=== PATIENT | female | born 1950 | race African-American/Black ===

== ENCOUNTER 2016-06-28 09:52 | Emergency (ER) | payer OTHER ==
[~2016-06-28 09:52] MED LIST: ARTIFICIAL15 ML OPTH OD; ASPIRIN PO; AUGMENTIN PO; BENADRYL PO; DARVOCET-N 1001 TAB PO; ELIMITE60 GM TOP; FLEXERIL PO; LIPITOR PO; LORTAB 10/500 T1 TAB PO; LORTAB 101 TAB 10/5; MEDROL4 MG/DOSE- PO; PREDNISONE PO; SKELAXIN PO; SYNTHROID PO; TUSSIONEX PENN473 ML PO; VICODIN 5/500 T1 TAB PO; VICODIN PO; ZANTAC PO
[2016-11-24] MEDS ORDERED: OMEPRAZOLE40 M1 (15:46)
== END 2016-06-28 09:55 | disposition home or self-care (01) ==
LOC: CFTX 09:52
DX: R05 Cough (principal); J02.9 Acute pharyngitis, unspecified; Z98.890 Other specified postprocedural states; Z88.6 Allergy status to analgesic agent; Z88.5 Allergy status to narcotic agent; Z88.8 Allergy status to other drugs, medicaments and biological substances
CPT/HCPCS: 99282

== ENCOUNTER 2016-07-12 02:19 | Observation (INO) | payer OTHER ==
--- NOTE | ~2016-07-12 | CO ---
Unit #: [id number] #: [id number] Patient: BERLIN FARRIS [id number] [address] [place], [place] [address] [id number] I MR#: [id number] NAME: BERLIN FARRIS ROOM: 565 Age: 66 Sex: F Admission Date: 07/12/2016 : 1950 Attending Physician: Nirmal Browning M.D. Primary Care Physician: Steve Johns M.D. Consultation Date: 07/13/2016 CONSULTATION REPORT PRIMARY CARE PHYSICIAN Steve Johns M.D. REASON FOR CONSULTATION Elevated hepatic transaminases. HISTORY OF PRESENT ILLNESS Ms. Farris is a 66-year-old female, who has been admitted with left-sided chest pain, pain in the left arm, and left torso. The patient has been evaluated by Cardiology and has been cleared from cardiac standpoint to go home. She also mentions significant dyspeptic symptoms and occasional black tarry stools. She also mentions history of nausea and intermittent vomiting. Upon her evaluation, she has been found to have elevated AST and ALT with normal alkaline phosphatase and bilirubin. PAST MEDICAL HISTORY Significant for history of TIAs; hypothyroidism; as well as uterine cancer, status post radiation treatment. PAST SURGICAL HISTORY Included section, internal fixation of right metatarsal. MEDICATIONS Prior to admission include ibuprofen and Flexeril. SOCIAL HISTORY Lives with her son and daughter. Recently . Very rarely drinks alcohol. Does not smoke. She has never used any recreational drugs. FAMILY HISTORY Significant for coronary artery disease in multiple family members in 30s and 40s. REVIEW OF SYSTEMS Detailed review of organ systems does not reveal any recent weight loss. No history of any fever, chills, or rigors. No history of any headache, seizures, or syncope. No history of cough, expectoration, or hemoptysis. No history of dysuria, hematuria, or pyuria. No history of focal seizures or extremity weakness. Rest of the review of organ systems is unremarkable. PHYSICAL EXAMINATION GENERAL: She is alert and oriented, and comfortable. VITAL SIGNS: Stable with a temperature of 98.2, pulse is 71 per minute Unit #: [id number] #: [id number] Patient: KALEIGH,BERLIN and regular, respirations is 20, and blood pressure is 122/73. She weighs 148 pounds. Baseline weight has been about 150 pounds in the past. HEENT: She has no pallor, icterus, lymphadenopathy, or peripheral edema. CARDIOVASCULAR: Normal heart sounds. No murmurs on auscultation. LUNGS: Reveal normal breath sounds. Good air entry. ABDOMEN: Soft and nontender. Liver and spleen are not palpable. Bowel sounds normal. DIAGNOSTIC STUDIES LABORATORY RESULTS: Shows a normal white count and hemoglobin. MCV of 100. Platelet count is 104. Serum chemistry shows normal BUN and creatinine, and electrolytes. Albumin is 3.0. AST and ALT are 144 and 164 respectively. Alkaline phosphatase is normal. Bilirubin is also normal. IMAGING STUDIES: An abdominal ultrasound done yesterday is normal. CLINICAL IMPRESSION The etiology of elevated transaminases could be chronic hepatitis C or recent viral illness or viral infection. The hepatitis serology is pending. The patient can be discharged home from GI standpoint and needs to follow up with me in the office in 6 to 8 weeks' time. The above plan was discussed with the patient and she was reassured. Thank you for asking me to see this pleasant woman. I appreciate the consult. Dictated by... Kari Louis/eda TD: 07/14/2016 01:25 JOB #: [id number] CC: . CONSULTATION REPORT Page 1 of 1 X Monty Abarca MD CONSULTATION REPORT
--- NOTE | ~2016-07-12 | US6 ---
[facility] A Service of [facility] RADIOLOGY TEXT RESULTS PATIENT: BERLIN FARRIS LOCATION: [facility] : [birth year] UNIT #: [id number] AGE: [address]: Nirmal Browning MD SEX: F ORDER DR: [id number] [id number] [place], [place] [address] [id number] I MR#: [id number] Acc #: [id number] NAME: BERLIN FARRIS : 1950 SEX: F STUDY DATE/TIME: 07/12/2016 12:29 UNIT: CEDOF ROOM: 32315 STUDY DESCRIPTION: US Abdominal Limited Attending Physician: Nirmal Browning M.D. Ordering Physician: Nirmal Browning M.D. Primary Care Physician: Setve Johns M.D. MEDICAL IMAGING REPORT This report is preliminary unless electronic signature is present EXAM Right upper quadrant abdominal ultrasound INDICATIONS Right upper quadrant abdominal pain for the past 6 months. PROCEDURE Lacey-scale and Doppler imaging right upper quadrant of the abdomen COMPARISON None FINDINGS Visualized portions of pancreas unremarkable. Common duct measures 6 mm. Unremarkable gallbladder. Right kidney measures 10.6 cm. No hydronephrosis. Liver measures 16.6 cm. Liver has slightly increased echotexture. IMPRESSION 1. Slightly increased liver echotexture could represent mild steatosis. 2. Otherwise negative right upper quadrant ultrasound. Dictated by... Alex Sandoval M.D. THIS IS AN ELECTRONICALLY VERIFIED REPORT Alex Sandoval M.D. at 07/13/2016 6:51 AM ALBIN/brendan TD: 07/12/2016 14:27 JOB #: [id number] MEDICAL IMAGING REPORT [facility] A Service [facility] RADIOLOGY TEXT RESULTS PATIENT: BERLIN FARRIS LOCATION: [facility] : [birth year] UNIT #: [id number] AGE: [address]: Nirmal Browning MD SEX: F ORDER DR: Page 1 of 1 COPY
--- NOTE | ~2016-07-12 | HP ---
Unit #: [id number] #: [id number] Patient: BERLIN FARRIS [id number] [address] [place], [place] [address] [id number] I MR#: [id number] NAME: BERLIN FARRIS ROOM: [facility] Age: 66 Sex: F Admission Date: 07/12/2016 : 1950 Attending Physician: Nirmal Browning M.D. Primary Care Physician: Steve Johns M.D. HISTORY AND PHYSICAL ADDENDUM TO JOB #[id number] The patient was evaluated for chest pain. She was ruled out for myocardial infarction with negative cardiac enzymes and troponin. She underwent exercise Cardiolite stress test where she exercised on a treadmill for 5 minutes and 58 seconds. She had no ischemic changes per EKG. There was no stress-induced ischemia noted on images with ejection fraction of 75%. She was noted to have elevated LFTs and was evaluated by Dr. Abarca. His assessment was that the patient has acute pancreatitis. She had multiple abdominal complaints and underwent CT of the abdomen and pelvis which shows stool burden but no acute findings. Dr. Abarca felt the patient could go home from his standpoint. She is to contact her primary care physician to get a referral for hospital GI follow up for Dr. Abarca in the next two to three weeks. She is to follow up with her primary care physician in two to three weeks. She will be discharged home on her current medications without changes. Dictated by Jose Thompson/barbraa TD: 07/13/2016 18:02 JOB #: [id number] HISTORY AND PHYSICAL Page 1 of 1 X Shayan Kam APRN HISTORY AND PHYSICAL
--- NOTE | ~2016-07-12 | TH ---
Unit #: [id number] #: [id number] Patient: BERLIN FARRIS [id number] [address] [address] [id number] I MR#: [id number] NAME: BERLIN FARRIS : 1950 SEX: F STUDY DATE/TIME: UNIT: [facility] ROOM: 565 STUDY DESCRIPTION: Nuclear Study Attending Physician: Nirmal Browning M.D. Primary Care Physician: Steve Johns M.D. CARDIOLOGY REPORT EXAM Exercise Cardiolite Stress Test - Nuclear Portion DESCRIPTION Using technetium 99m labeled Cardiolite, rest and stress SPECT images were obtained. Multiple SPECT images were obtained in various views including horizontal and vertical long axis and short axis views of the left ventricle. Images were obtained by gated SPECT method. The patient was administered 11.92 mCi of Cardiolite at rest. The patient was administered 36.0 mCi of Cardiolite at peak exercise. Total exercise time is 5 minutes 58 seconds. On the stress images, there normal perfusion noted. The rest images show normal perfusion. Comparing rest and stress images, there is no stress-induced ischemia noted. The left ventricular ejection fraction is calculated to be 75%. There is no focal wall motion abnormality seen. CONCLUSION 1. No stress-induced ischemia noted. 2. The left ventricular ejection fraction is calculated to be 75%. 3. There is no focal wall motion abnormality seen. 4. Normal nuclear portion of the stress test. 5. It must be noted that the patient had chest pain with exercise. No EKG changes noted. Clinical correlation is requested. Dictated by... Kari Yoon TD: 07/13/2016 07:12 JOB #: [id number] Unit #: [id number] #: [id number] Patient: BERLIN FARRIS CARDIOLOGY REPORT Page 1 of 1 X Mariel Day MD <ELECTRONICALLY SIGNED> 10/21/16 1429 CARDIOLOGY REPORT
--- NOTE | ~2016-07-12 | CR72 ---
[facility] A Service of [facility] RADIOLOGY TEXT RESULTS PATIENT: BERLIN FARRIS LOCATION: [facility] : [birth year] UNIT #: [id number] AGE: [address]: Nirmal Browning MD SEX: F ORDER DR: [id number] [facility] [address] [facility]. [place], [place] [address] [id number] I MR#: [id number] Acc #: [id number] NAME: BERLIN FARRIS : 1950 SEX: F STUDY DATE/TIME: 07/12/2016 02:18 UNIT: [facility] ROOM: 13572 STUDY DESCRIPTION: CR Chest Single View Portable Attending Physician: Nirmal Browning M.D. Ordering Physician: Saji Sheppard Aprn Primary Care Physician: Steve Johns M.D. MEDICAL IMAGING REPORT This report is preliminary unless electronic signature is present EXAM Portable chest, 07/12 at 02:18. INDICATIONS Arm pain and tachycardia today. FINDINGS AP portable chest is compared with 05/22/2016. Cardiac and mediastinal contours are normal. The lungs are clear. No pneumothorax is seen. Tul-pi-bimjf thoracic levoscoliosis again identified. IMPRESSION No active disease. Dictated by... Jayden Hannon Jr., M.D. THIS IS AN ELECTRONICALLY VERIFIED REPORT Jayden Hannon Jr., M.D. at 07/12/2016 9:25 PM TAM/andreina TD: 07/12/2016 09:38 JOB #: [id number] MEDICAL IMAGING REPORT Page 1 of 1 COPY
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
--- NOTE | ~2016-07-12 | CT4 ---
[facility] A Service of [facility] RADIOLOGY TEXT RESULTS PATIENT: BERLIN FARRIS LOCATION: [facility] 5607-31 : [birth year] UNIT #: [id number] AGE: [address]: Nirmal Browning MD SEX: F ORDER DR: [id number] [facility] [address] [facility]. [place], [place] [address] [id number] I MR#: [id number] Acc #: [id number] NAME: BERLIN FARRIS : 1950 SEX: F STUDY DATE/TIME: 07/13/2016 14:59 UNIT: [facility] ROOM: [facility] STUDY DESCRIPTION: CT Abd and Pelv Wo Cont Attending Physician: Nirmal Browning M.D. Ordering Physician: Nirmal Browning M.D. Primary Care Physician: Steve Johns M.D. MEDICAL IMAGING REPORT This report is preliminary unless electronic signature is present EXAM CT abdomen and pelvis without contrast 07/13/2016 INDICATIONS Generalized abdominal pain for the past 2 days. COMPARISON STUDIES 11/22/[address] exam was performed with one or more of the following radiation dose reduction techniques: automatic exposure control, adjustment of mA and/or kV according to patient size, and iterative reconstruction. FINDINGS ABDOMEN WITHOUT CONTRAST: Included lung bases are clear. The liver, spleen, kidneys, adrenal glands, pancreas and gallbladder have an unremarkable unenhanced appearance. The bowel loops are nondilated. Moderate colonic stool. Normal appendix. PELVIS WITHOUT CONTRAST: No pelvic mass or fluid. No aggressive appearing bone lesion. IMPRESSION 1. No acute findings. 2. Moderate colonic stool burden. Dictated by... Alex Sandoval M.D. THIS IS AN ELECTRONICALLY VERIFIED REPORT Alex Sandoval M.D. at 07/17/2016 9:54 AM [facility] A Service of [facility] & [facility] RADIOLOGY TEXT RESULTS PATIENT: BERLIN FARRIS LOCATION: [facility] [id number] : [birth year] UNIT #: [id number] AGE: [address]: Nirmal Browning MD SEX: F ORDER DR: ALBIN/gina TD: 07/13/2016 16:40 JOB #: [id number] MEDICAL IMAGING REPORT Page 1 of 1 COPY
--- NOTE | ~2016-07-12 | EKG ---
PATIENT: BERLIN FARRIS UNIT #: [id number] Ventricular Rate: 94 BPM Atrial Rate: 94 BPM P-R Interval: 172 ms QRS Duration: 114 ms Q-T Interval: 392 ms QTC Calculation(Bezet): 490 ms P Annabella: 74 degrees Calculated R Annabella: -23 degrees Calculated T Annabella: 70 degrees Diagnosis Line: Normal sinus rhythm Diagnosis Line: Possible Left atrial enlargement Diagnosis Line: Incomplete right bundle branch block Diagnosis Line: Prolonged QT Diagnosis Line: Abnormal ECG Diagnosis Line: When compared with ECG of 22-MAY-2016 13:01, Diagnosis Line: Left anterior fascicular block is no longer Diagnosis Line: Present Diagnosis Line: Incomplete right bundle branch block is now Diagnosis Line: Present Diagnosis Line: Confirmed by KARLA CACERES, JAMIN ([id number]) on 07/13/2016 Diagnosis Line: 7:46:17 PM INTERPRETING MD: KARLA CACERES
--- NOTE | ~2016-07-12 | ST ---
Unit #: [id number] #: [id number] Patient: BERLIN FARRIS [id number] [address] [address] [id number] I MR#: [id number] NAME: BERLIN FARRIS : 1950 SEX: F STUDY DATE/TIME: 07/12/2016 UNIT: [facility] ROOM: 565 STUDY DESCRIPTION: Stress Test Attending Physician: Nirmal Browning M.D. Primary Care Physician: Steve Johns M.D. CARDIOLOGY REPORT REASON FOR TEST Chest pain. DESCRIPTION Baseline EKG shows normal sinus rhythm, rate of 67 beats per minute. Incomplete right bundle branch block, nonspecific ST-T wave abnormality. The patient exercised on the treadmill according to Pito protocol for a total of 5 minutes 58 seconds achieving 7.0 METs with a resting heart rate of 67 beats per minute and a peak heart rate of 150 beats/minute representing 96% of the maximum predicted heart rate. There were no ST segment changes suggestive of ischemia noted during the testing. However, at peak exercise, patient did complain of left sided anterior chest heaviness with some radiation into her left shoulder. This resolved in the recovery period. She also complained of shortness of breath as well as leg fatigue. There were no arrhythmias. The test was ended secondary to complaints of chest pain and target heart rate achieved. IMPRESSION 1. Negative EKG portion of exercise Cardiolite. 2. No significant ST-T wave changes suggestive of ischemia. 3. The patient did develop left sided anterior chest heaviness with radiation into her left shoulder during peak exercise, rated as an 8 out of 10 scale. This resolved approximately three to four minutes into the recovery period. She also complained of chest pain and leg fatigue. 4. There were no arrhythmias. 5. Please correlate with nuclear images. Dictated by... Ute Cary A.P.R.N. for Kari Yoon/reagan TD: 07/13/2016 06:25 Unit #: [id number] #: [id number] Patient: BERLIN FARRIS JOB #: [id number] CARDIOLOGY REPORT Page 1 of 1 X Ute Cary APRN CARDIOLOGY REPORT
[2016-07-12 02:31] LABS: BASOPHIL# 0.1 X10e3 (0-0.3); BASOPHIL% 1.2 % (0-2.5); DIFF IND NO; EOSINOPHIL% 0.7 % (0.0-7.0); HEMATOCRIT 37.5 % (35.0-45.0); HEMOGLOBIN 12.9 gm/dL (12.0-16.0); LYMPHOCYTE% 48.1 % (17.0-45.0); MEAN CELL VOLUME 100.8 FL (83-96); MEAN CORPUSCULAR HEMOGLOBIN 34.8 PG (28-34); MEAN CORPUSCULAR HGB CONC 34.5 g/dL (30-36); MEAN PLATELET VOLUME 9.6 FL (6.5-11.5); MONOCYTE# 0.7 X10e3 (0-1.0); MONOCYTE% 11.8 % (3.0-12.0); NEUTROPHIL# 2.4 X10e3 (1.5-7.1); NEUTROPHIL% 38.2 % (40-75); PLATELET COUNT 116 X10e3 (140-420); RED BLOOD COUNT 3.72 X10e (3.90-5.30); RED CELL DISTRIBUTION WIDTH 13.8 % (11.0-15.5); WHITE BLOOD COUNT 6.2 X10e3 (4.0-10.5)
[2016-07-12 02:35] LABS: POC - CKMB 2.8 ng/mL (0.0-7.9); POC - TROPONIN <0.05 ng/mL (<=0.05)
[2016-07-12 02:46] LABS: ALBUMIN SERUM 3.3 g/dL (3.5-5.0); BILIRUBIN, DIRECT 0.3 mg/dL (0.0-0.2); BILIRUBIN,INDIRECT 0.7 mg/dL (0.0-0.9); CALCIUM SERUM 9.1 mg/dL (8.4-10.2); POTASSIUM 3.4 mmol/L (3.5-5.1); PROTEIN TOTAL SERUM 8.5 g/dL (6.0-8.3)
[2016-07-12 04:23] LABS: POC - CKMB 2.6 ng/mL (0.0-7.9); POC - TROPONIN <0.05 ng/mL (<=0.05)
[2016-07-12] MEDS ORDERED: SYNTHROID PO (04:27)
[2016-07-12 05:52] LABS: CHOLESTEROL 180 mg/dL (0-200); HDL CHOLESTEROL 55 mg/dL (35-95); LDL CHOLESTEROL 89 mg/dL (-130); LDL/HDL RATIO 2 RATIO (0-4); TRIGLYCERIDES 181 mg/dL (10-160)
[2016-07-12 08:48] LABS: %MB 2.3 % (0.0-4.0); MB 3.7 ng/ml
[2016-07-13 05:41] LABS: HEMATOCRIT 38.7 % (35.0-45.0); HEMOGLOBIN 13.1 gm/dL (12.0-16.0); MEAN CELL VOLUME 101.3 FL (83-96); MEAN CORPUSCULAR HEMOGLOBIN 34.3 PG (28-34); MEAN CORPUSCULAR HGB CONC 33.8 g/dL (30-36); RED BLOOD COUNT 3.82 X10e (3.90-5.30); RED CELL DISTRIBUTION WIDTH 13.7 % (11.0-15.5); WHITE BLOOD COUNT 4.6 X10e3 (4.0-10.5)
[2016-07-13 06:14] LABS: BILIRUBIN,TOTAL 0.5 mg/dL (0.2-2.0); BUN/CREATININE RATIO 21.66; CALCIUM SERUM 9.5 mg/dL (8.4-10.2); CREATININE SERUM 0.6 mg/dL (0.6-1.4); GLOM FILT RATE Estimated 111.6 mL/min (>60); PROTEIN TOTAL SERUM 8.2 g/dL (6.0-8.3)
[2016-07-13] MEDS ORDERED: PROTONIX PO (15:17)
[2016-07-17 16:07] LABS: HA AB IGM (HEPPAN) Nonreactive (()); HB CORE AB IGM (HEPPAN) Nonreactive (Nonreactive); HB S AG (HEPPAN) Nonreactive (Nonreactive); HEP C AB (HEPPAN) Reactive (Nonreactive)
[2016-11-24] MEDS ORDERED: OMEPRAZOLE40 M1 (15:46)
== END 2016-07-13 15:26 | disposition home or self-care (01) ==
LOC: CED 02:19 → CEDOF 05:04 → C5C 20:25
PROVIDERS: Internal Medicine Cardiovascular Disease; Nurse Practitioner Family
DX: R07.89 Other chest pain (principal); R10.13 Epigastric pain; I51.7 Cardiomegaly; I08.3 Combined rheumatic disorders of mitral, aortic and tricuspid valves; R74.0 Nonspecific elevation of levels of transaminase and lactic acid dehydrogenase [LDH]; R94.5 Abnormal results of liver function studies; K76.9 Liver disease, unspecified; K92.1 Melena; K59.9 Functional intestinal disorder, unspecified; E03.9 Hypothyroidism, unspecified; Z86.73 Personal history of transient ischemic attack (TIA), and cerebral infarction without residual deficits; Z85.42 Personal history of malignant neoplasm of other parts of uterus; Z82.49 Family history of ischemic heart disease and other diseases of the circulatory system; Z88.8 Allergy status to other drugs, medicaments and biological substances; Z88.6 Allergy status to analgesic agent
CPT/HCPCS: 36415; 71010; 74176; 76705; 78452; 80048; 80053; 80061; 80074; 80076; 82274; 82550; 82553; 84443; 84484; 85025; 85027; 87522; 93005; 93017; 93306; 99285; A9500; G0378; J1650

== ENCOUNTER → 2016-11-24 | Day surgery (SDC) | payer OTHER ==
[~2016-11-24] MED LIST changes: +OMEPRAZOLE40 M1; +PROTONIX PO
--- NOTE | ~2016-11-24 | OR ---
Unit #: [id number] #: [id number] Patient: BERLIN FARRIS [id number] [address] [address] [id number] MR#: [id number] NAME: BERLIN FARRIS ROOM: Date of Procedure: 11/25/2016 Admission Date: 11/24/2016 Surgeon: Monty Abarca M.D. : 1950 Attending Physician: Monty Abarca M.D. Primary Care Physician: Steve Johns M.D. PROCEDURE OPERATIVE NOTE PREOPERATIVE DIAGNOSES Patient has a history of dyspepsia, early satiety and bloating. In addition, he is screening for colon cancer. POSTOPERATIVE DIAGNOSES 1. Upper endoscopy, patient had distal grade 2 erosive esophagitis. 2. Focal patchy mild gastritis primarily in the form of erythema, erosions and erythema streaks in antral area. 3. The third part of the duodenum was normal. Biopsy was obtained for a CLOtest. 4. For colonoscopy: a. Mild superior descending colon. b. Small internal hemorrhoids. c. The rest of the examination of the cecum and terminal ileum was normal. PROCEDURE PERFORMED Upper GI endoscopy and biopsy, as well as colonoscopy with colonoscopy of the cecum and terminal ileum. RECOMMENDATIONS Patient will be started on pantoprazole 40 mg p.o. daily or omeprazole 40 mg p.o. daily. Will require followup in the office setting in three months time. He also needs a repeat colonoscopy in ten years. SEDATION USED MAC. PROCEDURE DESCRIPTION Following detailed explanation of potential risks and complications of an upper endoscopy and a colonoscopy, namely perforation, bleeding, and complications related to sedation, the patient was brought to GI lab and laid in the left lateral decubitus position. Lubricated tip of the Olympus video upper endoscope was passed through the bite block into the proximal esophagus under direct vision. The entire esophageal mucosa was examined. Patient was known to have distal grade 1-2 erosive esophagitis. The scope was then advanced into the gastric cavity and the latter was insufflated. Mucosa of the fundus, body, and antrum was examined. Mild and moderate prepyloric antral erosive gastritis was noted primarily in the form of erythema, erosions, and erythematous streaks in the antral area. Pylorus was intubated with visualization of the normal duodenal bulb and second and third part of the duodenum. Upon withdrawal and Unit #: [id number] #: [id number] Patient: KALEIGH,BERLIN retroflexion, incisura, cardia, and greater curve were examined and no additional findings noted. The scope was then withdrawn in the distal esophagus. No additional findings noted. Biopsy was obtained from the (1) . The scope was then withdrawal in the distal esophagus. The entire esophageal mucosa was examined all the way up to pharynx. No additional findings were noted. The examination table was then turned by 180 degrees and the patient was positioned for a colonoscopy. A digital rectal examination was performed, which was normal. Lubricated tip of the Olympus video colonoscope was inserted through the anus and advanced under direct vision. The scope was advanced past rectosigmoid into descending colon. Scant small diverticula were noted in this area. The scope tip was then navigated all the way up to cecum with visualization of the ileocecal valve and the appendiceal orifice. Preparation was excellent and good visualization for operations obtained. The last few inches of the terminal ileum were also visualized after intubation of the ileocecal valve but appeared normal. Successive segments of the colonic mucosa were examined upon withdrawal and appeared unremarkable, there being no polyps, lacerations or AVMs. Other the scant diverticula seen in the left side, the patient also had small internal hemorrhoids that are worse. The scope was then withdrawn, patient returned to recovery area. She tolerated the procedure without any postprocedure complications. Dictated by... Kari Louis TD: 11/27/2016 08:34 JOB #: [id number] PROCEDURE OPERATIVE NOTE Page 1 of 1 X Monty Abarca MD X PROCEDURE OPERATIVE NOTE
== END | disposition home or self-care (01) ==
LOC: COPS 12:15
PROVIDERS: Internal Medicine Gastroenterology
PROC: 0DB78ZX Excision of Stomach, Pylorus, Via Natural or Artificial Opening Endoscopic, Diagnostic (ICD-10-PCS; principal; 2016-11-24 13:00)
PROC: 0DJD8ZZ Inspection of Lower Intestinal Tract, Via Natural or Artificial Opening Endoscopic (ICD-10-PCS; 2016-11-24 13:00)
DX: K20.8 Other esophagitis (principal); K29.60 Other gastritis without bleeding; Z12.11 Encounter for screening for malignant neoplasm of colon; K57.30 Diverticulosis of large intestine without perforation or abscess without bleeding; K64.8 Other hemorrhoids; K59.09 Other constipation; R68.81 Early satiety; E03.9 Hypothyroidism, unspecified; Z79.899 Other long term (current) drug therapy; Z98.890 Other specified postprocedural states; Z88.8 Allergy status to other drugs, medicaments and biological substances; Z88.6 Allergy status to analgesic agent
CPT/HCPCS: 43239; G0121; 87077; J2250